=== PATIENT | male | born 1965 | race American Indian/Alaskan Native ===

== ENCOUNTER 2017-04-08 19:38 | Inpatient (IN) | payer OTHER ==
[2017-04-08 20:03] VITALS: BMI 25.0
--- NOTE | 2017-04-08 20:11 | ED PDOC ---
Arrival/HPI - General Chief Complaint: Headache Time Seen by Provider: 04/08/17 19:55 Historian: Patient, Other (sister) - History of Present Illness Narrative History of Present Illness (Text): 04/08/17 20:07 51 y.o. male whose pmhx includes autism, DM, and HTN, who according to the sister, the patient complained of R flank pain, dizziness, and mild headache this evening. The patient does say he has these symptoms as well as dysuria. He denies any cp or cough or abd pain or n/v. He is febrile here but did not know he had a fever. Past Medical History - Infectious Disease Hx of Infectious Diseases: None - Cardiac Hx Cardiac Disorders: Yes Hx Hypertension: Yes - Pulmonary Hx Respiratory Disorders: No - Neurological Hx Neurological Disorder: Yes Other/Comment: downs syndrome - HEENT Hx HEENT Disorder: No - Renal Hx Renal Disorder: No - Endocrine/Metabolic Hx Endocrine Disorders: No Hx Diabetes Mellitus Type 2: No - Hematological/Oncological Hx Blood Disorders: No - Integumentary Hx Dermatological Disorder: No - Musculoskeletal/Rheumatological Hx Musculoskeletal Disorders: No - Gastrointestinal Hx Gastrointestinal Disorders: No - Genitourinary/Gynecological Hx Genitourinary Disorders: No - Psychiatric Hx Psychophysiologic Disorder: No Hx Substance Use: No - Surgical History Other/Comment: ear drum (left ear) - Anesthesia Hx Anesthesia: Yes Hx Anesthesia Reactions: No Hx Malignant Hyperthermia: No - Suicidal Assessment Feels Threatened In Home Enviroment: No Family/Social History Family/Social History: No Known Family HX Smoking Status: Never Smoked Hx Alcohol Use: No Hx Substance Use: No Allergies/Home Meds Allergies/Adverse Reactions: Allergies No Known Allergies Allergy (Verified 06/05/16 18:19) Review of Systems - Review of Systems Constitutional: Fatigue Eyes: Normal ENT: Normal Respiratory: absent: SOB, Cough Cardiovascular: absent: Chest Pain Gastrointestinal: absent: Abdominal Pain, Nausea, Vomiting Genitourinary Male: Dysuria Musculoskeletal: Back Pain (R flank pain) Skin: Normal Neurological: Headache, Dizziness. absent: Focal Weakness, Gait Changes, Speech Changes, Facial Droop, Disequilibrium, Seizure Endocrine: Normal Hemo/Lymphatic: Normal Psychiatric: Normal Physical Exam Vital Signs Temp Pulse Resp BP Pulse Ox 04/08/17 20:21 101.9 F H 04/08/17 20:00 101.9 F H 101 H 18 153/95 H 100 Temperature: Febrile Blood Pressure: Hypertensive Pulse: Tachycardic Respiratory Rate: Normal Appearance: Positive for: Non-Toxic Pain Distress: None Mental Status: Positive for: other (Alert and oriented x 2 and partly to time ( baseline mental status); patient autistic) Finger Stick Blood Glucose: 221 - Systems Exam Head: Present: Atraumatic, Normocephalic Pupils: Present: PERRL Conjunctiva: Present: Normal Mouth: Present: Moist Mucous Membranes Pharnyx: Present: Normal. No: ERYTHEMA, EXUDATE Neck: Present: Normal Range of Motion. No: Meningeal Signs Respiratory/Chest: Present: Clear to Auscultation, Good Air Exchange. No: Respiratory Distress, Accessory Muscle Use Cardiovascular: Present: Regular Rate and Rhythm, Normal S1, S2. No: Murmurs Abdomen: Present: Normal Bowel Sounds. No: Tenderness, Distention, Peritoneal Signs Back: Present: CVA Tenderness (R cva tenderness) Upper Extremity: Present: Normal Inspection. No: Cyanosis, Edema Lower Extremity: Present: Normal Inspection. No: Edema Neurological: Present: GCS=15, CN II-XII Intact, Speech Normal Skin: Present: Warm, Dry, Normal Color. No: Rashes Psychiatric: Present: Alert Medical Decision Making ED Course and Treatment: 04/08/17 23:17 51 y.o. male with h/o DM with fever and R flank pain. He was c/o also of headache but no meningeal signs. Labs showing WBC of 10K with neutrophilia. Chemistry with glucose of 224 but otherwise unremarkable. The urine shows a UTI , which with his flank pain is consistent with pyelophritis. CT shows b/L mild hydronephrosis with distended bladder. Will need post-void residual. Patient given maxipime. Lactic acid is normal, so no code sepsis, but given his DM with fever, the patient is high risk for bacteremia and developing sepsis - will need admission for iv antibiotics. Case was discussed with on-call attending, Dr. Morelos for admission to her service. 04/08/17 23:22 Patient reports resolution of headache post tylenol. - Lab Interpretations Lab Results: 04/08/17 20:05 04/08/17 20:05 Lab Results 04/08/17 21:45: Urine Color Yellow, Urine Appearance Cloudy, Urine pH 6.5, Ur Specific [place] 1.015, Urine Protein Negative, Urine Glucose (UA) 250 H, Urine Ketones 15 H, Urine Blood Trace-intact H, Urine Nitrate Positive H, Urine Bilirubin Negative, Urine Urobilinogen 0.2, Ur Leukocyte Esterase Small H, Urine RBC 1 - 3, Urine WBC 10 - 15, Ur Epithelial Cells 0 - 2, Urine Bacteria Many 04/08/17 20:05: Sodium 136, Chloride 99, Potassium 4.4, Carbon Dioxide 29, Anion Gap 12, BUN 15, Creatinine 1.1, Est GFR ( Amer) > 60, Est GFR (Non- Af Amer) > 60, Random Glucose 224 H, Calcium 9.6, Phosphorus 2.4 L, Magnesium 1.7, Total Bilirubin 0.9, Direct Bilirubin 0.4, AST 38, ALT 30, Alkaline Phosphatase 118, Lactate Dehydrogenase 374, Total Creatine Kinase 291 H, CK-MB ( CK-2) 1.5, CK-MB (CK-2) % Cancelled, Troponin I < 0.01, NT-Pro-B Natriuret Pep 105, Total Protein 7.4, Albumin 4.1, Globulin 3.3, Albumin/Globulin Ratio 1.2, Lipase 52 04/08/17 20:05: pO2 23 L, VBG pH 7.40, VBG pCO2 49.0, VBG HCO3 30.4 H, VBG Total CO2 31.9 H, VBG O2 Sat (Calc) 48.1, VBG Base Excess 4.5 H, VBG Potassium 4.1, Sodium 135.0, Chloride 101.0, Glucose 228 H, Lactate 0.8, FiO2 21.0, Venous Blood Potassium 4.1 04/08/17 20:05: PT 14.0 H, INR 1.28 H, APTT 28.5 04/08/17 20:05: WBC 10.0 D, RBC 5.41, Hgb 12.1 L, Hct 37.3 L, MCV 68.9 L, MCH 22.4 L, MCHC 32.4, RDW 16.1 H, Plt Count 120, Gran % 78.3 H, Lymph % (Auto) 8.7 L, [place] % (Auto) 12.5 H, Eos % (Auto) 0.3 L, Baso % (Auto) 0.2, Gran # 7.79 H, Lymph # 0.9 L, [place] # 1.2 H, Eos # 0.0, Baso # 0.02 - RAD Interpretation Radiology Orders: 04/08/17 20:03 CHEST PORTABLE [RAD] Stat 04/08/17 20:05 ABD & PELVIS W/O PO OR IV CONT [CT] Stat Brain [HEAD W/O CONTRAST] [CT] Stat 04/09/17 07:00 RENAL [US] Routine - Medication Orders Current Medication Orders: Cefepime HCl (Maxipime 1gm) 1 gm in 100 mls @ 100 mls/hr IVPB STAT STA PRN Reason: Protocol Stop: 04/08/17 23:54 Sodium Chloride (Sodium Chloride 0.9%) 1,000 mls @ 100 mls/hr IV .Q10H STA Stop: 04/09/17 09:00 Insulin Human Regular (Humulin R Low) 0 units SC ACHS SHANKAR PRN Reason: Protocol Discontinued Medications Acetaminophen (Tylenol 325mg Tab) 975 mg PO STAT STA Stop: 04/08/17 20:06 Last Admin: 04/08/17 20:21 Dose: 975 mg MAR Pain/Vitals Document 04/08/17 20:21 [facility] (Rec: 04/08/17 20:21 [facility] Pain Reassessment Is This A Pain ReAssessment? No Sleep Is patient sleeping during reassessment? No Presence of Pain Presence of Pain No Vitals Temperature (97.6 F-99.6 F) 101.9 F Temperature Source Rectal Sodium Chloride (Sodium Chloride 0.9%) 2,200 mls @ 999 mls/hr IV .Q2H13M STA Stop: 04/08/17 22:22 Last Admin: 04/08/17 20:19 Dose: 999 mls/hr eMAR Start Stop Document 04/08/17 20:19 JOL (Rec: 04/08/17 20:20 [email or web address]) Intravenous Solution Start Date 04/08/17 Start Time 20:20 End Date 04/08/17 End time 22:33 Total Infusion Time 133 Disposition/Present on Arrival - Present on Arrival Any Indicators Present on Arrival: No History of DVT/PE: No History of Uncontrolled Diabetes: No Urinary Catheter: No History of Decub. Ulcer: No History Surgical Site Infection Following: None - Disposition Have Diagnosis and Disposition been Completed?: Yes Diagnosis: Pyelonephritis Disposition: HOSPITALIZED Disposition Time: 22:05 Patient Plan: Admission Condition: FAIR Forms: Bahoui (Kiswahili)
[2017-04-08 20:17] LABS: BASO # 0.02 K/mm3 (0.0-2.0); BASO % 0.2 % (0.0-3.0); EOS % 0.3 % (1.5-5.0); GRAN # 7.79 (1.4-6.5); GRAN % 78.3 % (50.0-68.0); HEMATOCRIT 37.3 % (42.0-52.0); LYMPH # 0.9 (1.2-3.4); LYMPH % 8.7 % (22.0-35.0); MEAN CELL VOLUME 68.9 fl (80.0-105.0); MEAN CORPUSCULAR HEMOGLOBIN 22.4 pg (25.0-35.0); MEAN CORPUSCULAR HGB CONC 32.4 g/dl (31.0-37.0); MONO # 1.2 (0.1-0.6); MONO % 12.5 % (1.0-6.0); PLATELET COUNT 120 10^3/uL (120.0-450.0); RED CELL DISTRIBUTION WIDTH 16.1 % (11.5-14.5)
[2017-04-08 20:18] LABS: VENOUS BLOOD GAS BASE EXCESS 4.5 mmol/L (0.0-2.0)
[2017-04-08 20:28] LABS: ALB/GLOB RATIO 1.2 (1.1-1.8); ALKALINE PHOSPHATASE 118 U/L (38-126); ALT/SGPT 30 U/L (7-56); AST/SGOT 38 U/L (17-59); BILIRUBIN,DIRECT 0.4 mg/dL (0.0-0.4); BILIRUBIN,TOTAL 0.9 mg/dL (0.2-1.3); BLOOD UREA NITROGEN 15 mg/dL (7-21); CALCIUM 9.6 mg/dL (8.4-10.5); CARBON DIOXIDE 29 mmol/L (21-33); CHLORIDE 99 mmol/L (98-107); GFR AFRICAN-AMERICAN > 60; GLUCOSE,RANDOM 224 mg/dL (70-110); LIPASE 52 U/L (23-300); MAGNESIUM 1.7 mg/dL (1.7-2.2); PHOSPHOROUS 2.4 mg/dL (2.5-4.5); POTASSIUM 4.4 mmol/L (3.6-5.0); SODIUM 136 mmol/L (132-148); TOTAL PROTEIN 7.4 g/dL (5.8-8.3)
[2017-04-08 20:40] LABS: INR 1.28 (0.93-1.08); PARTIAL THROMBOPLASTIN TIME 28.5 Seconds (25.1-36.5); TROPONIN I < 0.01 ng/mL
[2017-04-08 22:00] LABS: PH,URINE 6.5 (4.7-8.0); URINE BILIRUBIN NEGATIVE (NEGATIVE); URINE BLOOD TRACE-INTACT (NEGATIVE); URINE GLUCOSE (UA) 250 mg/dL (NEGATIVE); URINE KETONE 15 mg/dL (NEGATIVE); URINE LEUKOCYTE ESTERASE SMALL Leu/uL (NEGATIVE); URINE PROTEIN NEGATIVE mg/dL (<30 mg/dL); URINE UROBILINOGEN 0.2 E.U./dL (<1 E.U./dL)
[2017-04-08 22:02] LABS: URINE COLOR YELLOW (YELLOW)
--- NOTE | 2017-04-08 22:21 | CT ---
EXAM: CT Head Without Intravenous Contrast CLINICAL HISTORY: 51 years old, male; Pain; Headache TECHNIQUE: Axial computed tomography images of the head/brain without intravenous contrast. All CT scans at this facility use one or more dose reduction techniques, viz.: automated exposure control; ma/kV adjustment per patient size (including targeted exams where dose is matched to indication; i.e. head); or iterative reconstruction technique. COMPARISON: No relevant prior studies available. FINDINGS: Brain: No acute intracranial hemorrhage. No significant white matter disease. No edema. Ventricles: No significant ventriculomegaly. Bones: No acute displaced fracture. Sinuses: Unremarkable as visualized. No acute sinusitis. Mastoid air cells: Unremarkable as visualized. No mastoid effusion. IMPRESSION: No acute intracranial hemorrhage, or suspicious mass effect.
[2017-04-08 22:35] LABS: URINE EPITHELIAL CELLS 0 - 2 /hpf (0-5)
[2017-04-08 22:36] LABS: URINE APPEARANCE CLOUDY (CLEAR); URINE BACTERIA MANY (NEG)
--- NOTE | 2017-04-08 22:38 | CT ---
EXAM: CT Abdomen and Pelvis Without Intravenous Contrast CLINICAL HISTORY: 51 years old, male; Pain; Abdominal pain; Flank; Right; Additional info: R flank pain TECHNIQUE: Axial computed tomography images of the abdomen and pelvis without intravenous contrast. All CT scans at this facility use one or more dose reduction techniques, viz.: automated exposure control; ma/kV adjustment per patient size (including targeted exams where dose is matched to indication; i.e. head); or iterative reconstruction technique. MIP reconstructed images were created and reviewed. Coronal and sagittal reformatted images were created and reviewed. COMPARISON: No relevant prior studies available. FINDINGS: Lower thorax: The bilateral lung bases are clear. ABDOMEN: Liver: The liver is enlarged, and demonstrates diffuse fatty infiltration. Gallbladder and bile ducts: No acute finding. No calcified stones. No intra-extrahepatic biliary ductal dilation. Pancreas: Limited evaluation secondary to the lack of intravenous contrast. Spleen: No acute findings. Adrenals: No acute findings. Kidneys and ureters: No obstructing stones. Mild bilateral hydroureteronephrosis, likely secondary to bladder distention. PELVIS: Bladder: The bladder is moderately distended. Reproductive: No acute findings. Appendix: The appendix is not definitively visualized, however no pericecal inflammatory change is identified to suggest the presence of acute appendicitis. ABDOMEN and PELVIS: Stomach and bowel: No acute findings. Peritoneum: No acute findings. Lymph nodes: Limited evaluation without intravenous contrast. Vasculature: No aortic aneurysm. Bones: No acute fracture. IMPRESSION: No obstructive uropathy. Mild bilateral hydroureteronephrosis, likely secondary to bladder distention. The appendix is not definitively visualized, however no pericecal inflammatory change is present to suggest the presence of acute appendicitis.
[2017-04-08] MEDS ORDERED: Cefepime 1gm in NS 100ml 1 GM/100 ML BAG IVPB STA (22:55)
[2017-04-08] MEDS ORDERED: Sodium Chloride 0.9% 1,000 ML IV STA (23:01)
[2017-04-09] MEDS: Insulin Reg-LOW-Coverage SC SCH ×4 (08:03→22:30)
--- NOTE | 2017-04-09 09:26 | RAD ---
HISTORY: Sepsis Patient COMPARISON: 01/11/2015 FINDINGS: LUNGS: No active pulmonary disease. PLEURA: No significant pleural effusion identified, no pneumothorax apparent. CARDIOVASCULAR: Normal. OSSEOUS STRUCTURES: No significant abnormalities. VISUALIZED UPPER ABDOMEN: Normal. OTHER FINDINGS: None. IMPRESSION: No active disease.
[2017-04-09] MEDS ORDERED: Nitroglycerin 2% Ointment Foilpak UD TOP PRN (10:19)
--- NOTE | 2017-04-09 10:50 | US ---
PROCEDURE: Ultrasound of the Kidneys HISTORY: hydronephrosis COMPARISON: None available. TECHNIQUE: Sonogram of the kidneys. FINDINGS: Evaluation markedly limited due to extensive shadowing bilaterally. RIGHT KIDNEY: Measures: 10.9 x 4.8 x 4.1 cm. No obstructing calculus, hydronephrosis, or renal cyst identified. LEFT KIDNEY: Measures: 10.2 x 5.4 x 5.6 cm. No obstructing calculus, hydronephrosis, or renal cyst identified. OTHER FINDINGS: None. IMPRESSION: Markedly limited examination due to extensive shadowing. No obstructing calculus, hydronephrosis, or renal cyst identified.
[2017-04-09] MEDS: cefTRIAXone 1 gm 1 GM/100 ML BAG IVPB SCH (11:18)
--- NOTE | 2017-04-09 12:38 | CARD ---
APPROVED REPORT EKG Measurement Heart [id number] <Conclusion> Sinus rhythm with 1st degree AV block Possible Left atrial enlargement Left ventricular hypertrophy Abnormal ECG
--- NOTE | 2017-04-09 22:13 | HP ---
HISTORY OF PRESENT ILLNESS: This is a 51-year-old male, who was examined at his bedside in the presence of his mother, Mary, his sister, Elsa and his nurse, Suzanna Rodrigez, who was present with me through the entire interview. The patient was admitted last evening for concerns of urinary tract infection. He presented with flank pain, fever and complaints of dysuria. He is a long-time diabetic hypertensive with behavioral development issues, who resides with his mother. In the emergency room, the patient was unable to inform the staff of his medications, which his sister has clarified include Zestril 10 mg p.o. daily and metformin 500 mg p.o. b.i.d. The patient is a recipient of Social Security disability. He is a nondrinker, nonsmoker, non IV drug mis-user. He has no known allergies to medication and at present denies any fever, chills, chest pain or shortness of breath. REVIEW OF SYSTEMS CONSTITUTIONAL REVIEW: He was admitted with fever, but at present no fever or chills. HEAD REVIEW: No headache. EYE REVIEW: No change in visual acuity. EAR REVIEW: No hearing loss. THROAT REVIEW: No swallowing difficulty. NECK REVIEW: No stiffness. CARDIAC REVIEW: He has chronic hypertension. PULMONARY REVIEW: Denied cough or hemoptysis. GASTROINTESTINAL: Denied hematemesis, melena, diarrhea or vomiting. GENITOURINARY: At present has no dysuria. Denies any knowledge of prostate abnormalities nor urinary tract infections in his past. SKIN: No rashes. VASCULAR: No claudication. ENDOCRINOLOGIC: He has a history of type 2 diabetes mellitus. MUSCULOSKELETAL: Degenerative arthritis. FAMILY HISTORY: Noncontributory. ALLERGIES: NO KNOWN ALLERGIES TO MEDICATION. PHYSICAL EXAMINATION VITAL SIGNS: Temperature 98.3, previously 101.9, respirations 18, pulse 84, blood pressure 143/100 with a pulse ox of 100%. HEENT: Head: Normocephalic, atraumatic. Eyes: No icterus. Ears: Clear. Throat: Noninjected. NECK: Supple. HEART: Regular S1, S2. No pathological rubs, murmurs or gallops. LUNGS: Clear to auscultation. ABDOMEN: Soft, nontender. No palpable organomegaly. EXTREMITIES: No clubbing. No cyanosis. No edema. NEUROLOGIC: Intact. PSYCHOLOGIC: Slow in responses. VASCULAR: Legs warm to touch. SKIN: Without rash. LABORATORY DATA: White count 10,000, hemoglobin 12.1, hematocrit 37.3, platelets 120,000. PT/INR 1.28, PTT 28.5. Sodium 136, K 4.4, chloride 99, bicarb 29, BUN 15, creatinine 1.0, random blood sugar 201. Phosphorous 2.4. Magnesium 1.7. Bilirubin 0.9, AST 38, ALT 30, alk phos 118. Troponin less than 0.01. BNP 105 normal. PSA elevated 11.8. Urinalysis many bacteria, negative protein, positive sugar, 10-50 white blood cells per high-power field. Chest x-ray was reviewed, it shows no active pulmonary disease, no pleural effusions, no pneumothorax. Cardiovascular silhouette was within normal limits. His EKG showed normal sinus rhythm with nonspecific ST-T wave changes. Abdominal and pelvic CT was reviewed, which showed no obstructive uropathy with mild bilateral hydroureters, most likely secondary to his bladder distention. No stones were noted. Head CT was reviewed, which showed no acute intracranial hemorrhage, no stroke. I repeated a renal ultrasound for completeness sake after the patient had voided and this showed no obstructing calculus, hydronephrosis or renal cyst in either kidney. IMPRESSION: This is a 51-year-old male with long-standing history of delayed behavioural development with chronic diabetes, hypertension and now with urinary tract infection in the setting of an elevated PSA. This was discussed with the patient, his mother, Mary and sister, Elsa at the bedside. The patient upon discharge will need to follow up with urology regarding his elevated PSA for possible prostate ultrasound and biopsy to rule out prostate cancer. At present, he is awaiting the results of blood and urine cultures and is being treated with parenteral Rocephin. He is ordered to have a heart-healthy diabetic diet. He is given orders for Tylenol 650 p.o. q.6 hours. p.r.n. pain or temperature greater than 101. He is receiving Rocephin 1 g IV q. 24, Zestril 10 mg p.o. b.i.d., nitroglycerin 1 inch to chest wall q.4 hours p.r.n., accelerated hypertension, if his systolic blood pressure should be greater than 160 or his diastolic blood pressure should be greater than 100. For the time being he will be given regular low-dose insulin protocol a.c. meals and h.s. Rapid flu antibodies to influenza A and B are pending at present as well and ultimate plan will be to switch this patient to oral antibiotics when clinically stable and for him to be followed by his PMD, Dr. Guido Schneider as an outpatient as well as by the Urology referral of her choice. The family was clearly advised of his abnormal PSA and that this needs to be followed up given his presentation of urinary tract infection in a male and that this could represent prostate cancer. Hopefully, they will be compliant with the above recommendation. This was discussed in the presence of his nurse. Greater than sixty minutes was spent in the care, counseling, management and outlining of orders and review of his labs and x-rays today. All questions were answered. Dania Morelos MD [facility]
[2017-04-10] MEDS: Insulin Reg-LOW-Coverage SC SCH ×4 (07:32→22:37)
[2017-04-10] MEDS: cefTRIAXone 1 gm 1 GM/100 ML BAG IVPB SCH (09:31)
[2017-04-10 09:53] VITALS: RESP 20
[2017-04-11] MEDS: Insulin Reg-LOW-Coverage SC SCH ×4 (08:37→22:18)
[2017-04-11] MEDS: cefTRIAXone 1 gm 1 GM/100 ML BAG IVPB SCH (10:16)
--- NOTE | 2017-04-11 23:38 | PN ---
DATE: 04/11/2017 SUBJECTIVE: This 51-year-old male was examined at his bedside. His case was reviewed in detail with his mother, Mary; his sister, Elsa; and his nurse, Dania Fowler, registered nurse. All were present at the bedside. The patient suffers from chronic developmental behavioral delay. He is cared for on a 24-hour basis by his mother. He was admitted with fever, flank pain, and urinary tract infection. Today, cultures show Gram-negative rods in his urine and only today was his sensitivity available. He is growing Morganella morganii in his urine, sensitive to Rocephin which he is currently on and ciprofloxacin. The patient denies any dysuria, fever, chills, shortness of breath or current flank pain. PHYSICAL EXAMINATION: VITAL SIGNS: His temperature is 98.8, respirations 20, pulse 88, and blood pressure 115/77 with a pulse ox of 97% on room air. HEENT: Head: Normocephalic, atraumatic. Eyes: No icterus. Ears: Clear. Throat: Noninjected. NECK: Supple. HEART: Regular S1, S2. No pathological rubs, murmurs or gallops. LUNGS: Clear to auscultation. ABDOMEN: Soft. There is no tenderness. There is no rebound, no guarding, no flank pain. EXTREMITIES: No clubbing, no cyanosis, no edema. SKIN: No rash. VASCULAR: Legs warm to touch. PSYCHOLOGICAL: Alert and oriented x3. NEUROLOGICAL: Intact. LABORATORY DATA: White count 10,000, hemoglobin 12.1, hematocrit 37.3, platelets 120,000. PT/INR 1.28, PTT 28.5. Random blood sugar 176. PSA elevated 11.8. Sodium 136, K 4.4, chloride 99, bicarb 29, BUN 15, creatinine 1.1. All liver function testing normal including bilirubin 0.9, AST 38, ALT 30, and alk phos 118. Troponin was less than 0.01. Renal ultrasound showed no evidence of hydronephrosis. No masses, no stones. Chest x-ray showed no active pulmonary disease. EKG showed a normal sinus rhythm with nonspecific ST-T wave changes. Head CT showed no evidence of stroke. Abdominopelvic CT showed no evidence of obstructive uropathy, no evidence of appendicitis. IMPRESSION: This is a 51-year-old male with developmental delay and comorbidities of chronic hypertension, diabetes mellitus, and now with elevated PSA, rule out prostate cancer, rule out prostate hypertrophy and a urinary tract infection with Morganella morganii sensitive to Rocephin, which the patient is currently receiving as well as Cipro. It should be noted today is the first day the patient has not had any fever and as discussed with himself, his mother, his sister and nursing, he will be switched to ciprofloxacin 500 mg p.o. b.i.d. to complete a 10-day antibiotic course. He continues on regular low-dose insulin protocol a.c. meals and at bedtime, nitroglycerin 1 inch to chest wall q. 4 hours p.r.n. accelerated hypertension if his systolic blood pressure should be greater than 180 or diastolic blood pressure should be greater than 100. He continues on Zestril 10 mg p.o. b.i.d., Tylenol 650 p.o. q. 6 hours p.r.n. pain or temperature greater than 101. He is receiving a heart-healthy diabetic diet and pending his clinical status in the morning, will be ready for discharge. The family is aware, they need to go to Medical Records to obtain copies of his renal ultrasounds and labs including PSA and to ask his primary care physician within his managed care network to provide a referral for a urologist who will need to follow him and evaluate him for possible prostate cancer and also further workup regarding his presentation of urinary tract infection and pyelonephritis. Greater than fifty minutes was spent in the care, counseling, management, and review of labs and x-rays and for this patient with his family today. All questions were answered. This case was reviewed in detail with his nurse, Dania Fowler. Dania Morelos MD [facility]
[2017-04-12 08:12] VITALS: TEMP 98.2; O2SAT 100
--- NOTE | 2017-04-12 08:22 | PN ---
DATE: 04/10/2017 SUBJECTIVE: This 51-year-old male was examined at his bedside. His mother, Mary, was present for the interview. She states that she stayed with her son at his bedside for the past 24 hours. He suffers from behavioral developmental disturbance and lives with his mother at home as well. At present, he denies any fever or chills. He denies any dysuria and is cooperating with nursing staff regarding insulin coverage and parenteral antibiotic administration. PHYSICAL EXAMINATION: VITAL SIGNS: At present, his vital signs show temperature of 97.9, last evening 99; with a respiratory rate of 20; pulse 73 and blood pressure 150/90 and pulse ox of 100% room air. HEENT: Head: Normocephalic, atraumatic. Eyes: No icterus. Ears: Clear. Throat: Noninjected. NECK: Supple. HEART: Regular S1, S2. LUNGS: Clear. ABDOMEN: Soft. EXTREMITIES: No edema. SKIN: Without rash. NEUROLOGICAL: Intact. PSYCHOLOGICAL: Alert and oriented. VASCULAR: Legs warm to touch. LABORATORY DATA: White count 10,000, hemoglobin 12.1, hematocrit 37.3, platelets 120,000. PT/INR 1.28, random blood sugar 163. Sodium 136, potassium 4.4, chloride 99, bicarb 29, BUN 15, creatinine 1.1, calcium 9.6, normal, magnesium 1.7 normal and all liver function testing was normal including bilirubin 0.9, AST 38, ALT 30 and alk phos 118. Prostate specific antigen elevated at 11.8. Urinalysis showed many bacteria. Blood cultures show no growth at 24 hours and urine culture is growing a gram-negative heidi. IMPRESSION: This is a 51-year-old male with developmental delay, type 2 diabetes mellitus, chronic hypertension and now with an elevated PSA level in the setting of a urinary tract infection. Renal ultrasound was reviewed, there is no evidence of hydronephrosis, mass or renal calculi. PLAN: At present is to continue the patient on parenteral Rocephin, pending the identification and sensitivity report of his urinary culture results. As previously discussed with the patient and his mother, Mary, he will need to follow up with a urology referral through his primary care physician in the [employer] upon discharge for further evaluation of this elevated PSA to rule out prostate cancer. He will need to complete a minimum of a 10-day antibiotic course with his urinary tract infection and this will need to be reviewed with urology as well. At present, the patient will remain on insulin coverage. He continues on nitroglycerin 1 inch to chest wall q.4 hours p.r.n. accelerated hypertension if his systolic blood pressure should be greater than 160 or diastolic blood pressure should be greater than 100. He continues on Zestril 10 mg p.o. b.i.d., Tylenol 650 mg p.o. q.6 hours p.r.n. pain or temperature greater than 101 and ultimate plan will be for discharge to home when medically stable. All of the above was discussed in detail with the patient and his mother at the bedside. All questions were answered. Greater than 50 minutes were spent in the care, counseling, management, review of radiographic reports, x-rays, laboratories and microbiology studies for this patient today. Prognosis remains stable at present. Dania Morelos MD [facility]
[2017-04-12] MEDS: Insulin Reg-LOW-Coverage SC SCH (08:42)
[2017-04-12 10:01] VITALS: BP 150/89; PULSE 67
--- NOTE | 2017-04-12 14:23 | DS ---
FINAL DIAGNOSES: Morganella morganii urinary tract infection; chronic developmental delay disorder; non-insulin dependent diabetes mellitus; chronic hypertension. Discharge to home to the care of his mother who provides 24 hours supervision for this patient. The patient and mother were advised to follow up with their PMD in the [employer] within 24 hours for referral for Urology evaluation of elevated PSA of 11.8, rule out prostate cancer. DISCHARGE MEDICATIONS: Cipro 500 mg p.o. b.i.d. #14 no refills; metformin 500 mg p.o. b.i.d., Zestril 10 mg p.o. b.i.d. The patient is discharged on a heart-healthy diabetic diet. SUMMARY: This 51-year-old -[place] male was admitted to the [facility] with flank pain, dysuria and a urinary tract infection that grew out Morganella morganii initially treated with IV Rocephin and then switched to oral Cipro with identification and sensitivities became available. The patient was noted on lab testing to have a PSA of 11.8. This was discussed with the family including his mother, Mary, and his sister, Elsa, that will need followup with the urological referral by his PMD in his HealthCare Plan. They are aware that this could represent benign prostate hypertrophy or prostate cancer and that he will need a digital prostate exam ultrasound and possible prostate biopsy. Hopefully, they will be compliant with this recommendation. PHYSICAL EXAMINATION: VITAL SIGNS: At the time of discharge, temperature was 98.2, respirations 20, pulse 66, blood pressure 150/89, earlier 124/84; pulse ox was 100% on room air. LABORATORY DATA: Showed white count 10,000, hemoglobin 12.1, hematocrit 37.3, platelets 120,000. His random blood sugar was 138. His electrolytes showed sodium 136, K 4.4, chloride 99, bicarb 29, BUN 15, creatinine 1.1. All liver function testing was normal including bilirubin 0.9, AST 38, ALT 30 and alk phos 118. Renal ultrasound showed no masses, no hydronephrosis, no kidney stones. The patient and his mother, Mary, were given copies of his lab work, urine culture results, abdominal pelvic CT as well as renal ultrasound. All medications were reviewed. They understand his importance of followup as outlined. Greater than forty minute was spent in the care, management, discussion and preparation of discharge reports and prescriptions for this patient today. This was reviewed in detail with his nurse and all questions were answered. Dania Morelos MD [facility]
== END 2017-04-12 14:18 | disposition home or self-care (01) | DRG 690 ==
LOC: ED 19:38 → ERH 23:04 → 3RNO 04-09 00:26
PROVIDERS: ADMIT Internal Medicine; ATTEND Internal Medicine
DX: N39.0 Urinary tract infection, site not specified (principal); I10 Essential (primary) hypertension; B96.89 Other specified bacterial agents as the cause of diseases classified elsewhere; E11.9 Type 2 diabetes mellitus without complications; R62.50 Unspecified lack of expected normal physiological development in childhood; R97.20 Elevated prostate specific antigen [PSA]; Z79.84 Long term (current) use of oral hypoglycemic drugs